=== PATIENT | male | born 1975 | race Asian ===

== ENCOUNTER → 2017-01-29 | Outpatient (REF) | LOC: WSOH 11:31 | DX: Z01.89 Encounter for other specified special examinations (principal) ==

== ENCOUNTER → 2017-01-29 | Outpatient (REF) | LOC: WSOH 11:21 | DX: Z01.89 Encounter for other specified special examinations (principal) ==

== ENCOUNTER → 2017-02-03 | Outpatient (REF) | LOC: WSOH 13:57 | DX: Z02.89 Encounter for other administrative examinations (principal) ==